=== PATIENT | male | born 1960 | race Caucasian/White ===

== ENCOUNTER → 2016-11-21 | Outpatient (CLI) | payer OTHER ==
--- NOTE | 2016-11-21 10:33 | KCIC ---
PROCEDURE Right upper quadrant ultrasound. HISTORY Pain. TECHNIQUE Right upper quadrant ultrasound was performed. Exam is limited given body habitus. COMPARISON None. FINDINGS There is diffuse increase in echogenicity of the liver. Right hepatic lobe is 16.9 centimeters in length. Gallbladder evaluation is limited but grossly within normal limits. Common bile duct is not visualized. Pancreas is poorly evaluated given body habitus and bowel gas. Right kidney measures at least 14 centimeters in length and is without hydronephrosis or mass. IVC is not well evaluated. IMPRESSION 1. Limited study given body habitus and bowel gas. 2. Fatty infiltration of the liver. 3. No definite acute findings. Electronically signed by: Hemant Calero MD (November 21, 2016 10:31:22)
== END | disposition home or self-care (01) ==
LOC: KCIC US 09:27
PROVIDERS: ATTEND Family Medicine
DX: K76.0 Fatty (change of) liver, not elsewhere classified (principal)
CPT/HCPCS: 76705

== ENCOUNTER 2017-09-19 18:38 | Emergency (ER) | payer OTHER ==
[2017-09-19] MEDS: CLINDAMYCIN HCL 150 MG CAPSULE. PO (19:24)
[2017-09-19] MEDS: DIPHTH,PERTUSS(ACELL),TET TOX 0.5 ML DISP.SYRIN. VAX IM (19:25)
== END 2017-09-19 20:17 | disposition home or self-care (01) ==
LOC: ER 18:38
DX: L03.116 Cellulitis of left lower limb (principal); E11.9 Type 2 diabetes mellitus without complications; E78.00 Pure hypercholesterolemia, unspecified; I10 Essential (primary) hypertension; Z79.82 Long term (current) use of aspirin
CPT/HCPCS: 90471; 90715; 93971; 99284-25